=== PATIENT | male | born 1995 | race Caucasian/White ===

== ENCOUNTER 2021-11-29 15:37 | Emergency (ER) | payer MEDICAID, SELFPAY ==
[2021-11-29 15:38] VITALS: BP 147/69; PULSE 80; RESP 16; TEMP 36.1; O2SAT 100; BMI 25.0
--- NOTE | 2021-11-29 16:03 | EDS_ITS ---
HPI History of Present Illness Chief Complaint: Male Pain/Injury Narrative Narrative: 26-year-old male presenting with scrotal pain. He was diagnosed with epididymitis on the at [facility]. He was given 500 mg of Rocephin IM as well as doxycycline 100 mg p.o. twice daily. He has been taking the doxycycline twice daily and notes that his drainage has cleared up however he still having scrotal pain. He denies any trauma. He states he has not been taking anything for pain at home. He has not been icing his scrotum. He has not had a fever. He denies any sexual activity. PFSH PFSH Home Medications levofloxacin 500 mg PO DAILY #7 tab 11/29/21 [Rx Last Taken Unknown] naproxen [Naprosyn] 500 mg PO BID PRN #30 tab 11/29/21 [Rx Last Taken Unknown] Allergy/AdvReac Type Severity Reaction Status Date / Time No Known Allergies Allergy Verified 11/29/21 15:40 ROS ROS ED Constitutional Constitutional ED: Denies chills or fever(s) Eyes Eyes: Denies blurry vision or change in vision ENT ENT ED: Denies rhinorrhea or sore throat Cardiovascular Cardiovascular: Denies chest pain or palpitations Respiratory/Chest Respiratory/Chest: Denies cough or dyspnea Gastrointestinal Gastrointestinal: Denies abdominal pain, nausea or vomiting Genitourinary Genitourinary ED: Reports other Details: Resolved drainage from the urethra. Scrotal pain. ; Denies hematuria or urinary frequency Musculoskeletal Musculoskeletal: Denies arthralgias or myalgias Integumentary Denies rash Neurologic Neurologic: Denies headache(s) EXAM Physical Exam Const Vital Signs: 11/29/21 15:38 Temperature 96.9 F L Temperature Source Temporal Pulse Rate 80 Respiratory Rate 16 Blood Pressure 147/69 H Blood Pressure Mean 95 Pulse Ox 100 Oxygen Delivery Method Room Air Positive well nourished General Appearance ED: NAD HEENT normocephalic and atraumatic Eyes PERRL and EOMs intact bilaterally Cardio regular rhythm Penis: normal penis and circumcised; Negative for ecchymosis, edematous, erythema or mass Meatus: meatus normal; Negative for meatal discharge or blood at meatus Scrotum: testes descended bilaterally and cremasteric reflex present; Negative for ecchymosis, edematous, scrotal swelling or scrotal mass Testes: testicular lie normal and testicular tenderness bilateral (Tenderness of epididymis bilaterally.); Negative for blue dot sign or high-riding testicle Neuro oriented x3 Sensorium / Orientation: alert Psych mental status grossly normal Skin Lesions: no lesions Rashes: no rashes MDM MDM MDM Narrative Medical decision making narrative: I reviewed the patient's medical record. I was able to find his test results. He tested positive for chlamydia and has had the appropriate treatment for this. He also received 500 mg Rocephin. He does note that the drainage has cleared up although he still has pain in the scrotum. He is not taking any anti-inflammatories or Tylenol. He is not icing his testicles. I counseled him that he will need to do this. He states he tried to follow-up with urology but cannot get an appointment for a couple of weeks through [facility]. I will give him Dr. Gordon a week and tried a follow- up with him. The patient did have an ultrasound on the which showed small bilateral varicoceles and bilateral epididymal enlargement of the right greater than left. There was no torsion. He does not present with symptoms of torsion today either. I will send a urine gonorrhea chlamydia to see if this is still positive. In the meantime he will be treated with 2 g of azithromycin. He will be given a [id number] prescription for Levaquin if needed. He was counseled to try to treat the inflammation with anti-inflammatories and was given a prescription for Naprosyn. He is counseled he can alternate Tylenol. He is counseled to ice the area with rare he is tender. If he develops any systemic signs or symptoms he should return to the ER. Impression: 1. Epididymitis 2. History of chlamydia Discharge Plan Triage Chief Complaint: Male Pain/Injury ED Provider: Rudy Rivera Dx/Rx/DC Orders Instructions: ED Epididymitis, ED STI Male Treated Prescriptions: New levofloxacin 500 mg tablet 500 mg PO DAILY Qty: 7 RF: 0 naproxen [Naprosyn] 500 mg tablet 500 mg PO BID PRN (Reason: pain) Qty: 30 RF: 0 Referrals: Deo Reddy MD [STAFF PHYSICIAN] - As Needed Disposition Disposition: Home, Self Care
[2021-11-29] MEDS: Azithromycin 250 MG Tablet 2000 MG PO (16:16)
[2021-11-29] MEDS: Naproxen 500 MG Tablet PO (16:16)
[2021-11-29 18:52] LABS: Chlamydia Trachomatis by PCR Negative (Negative); Neisserai gonorrhoeae by PCR Negative (Negative); Probe Check PASS; Specimen Processing Control PASS
[2021-11-29 18:53] LABS: Sample Adequacy Control PASS
== END 2021-11-29 16:32 | disposition home or self-care (01) ==
LOC: ED 16:10
PROVIDERS: Emergency Provider Student in an Organized Health Care Education/Training Program; PCP Specialist
DX: N45.1 Epididymitis (principal); Z79.1 Long term (current) use of non-steroidal anti-inflammatories (NSAID)
CPT/HCPCS: 87491; 87591; 99281; 99283